=== PATIENT | male | born 1990 | race Hispanic/Latino ===

== ENCOUNTER 2024-03-09 20:02 | Emergency (ER) | payer SELFPAY ==
[2024-03-09] MEDS ORDERED: TETRACAINE HCL 0.5% 4ML OPTH ONE (21:42)
[2024-03-09] MEDS ORDERED: FLUORESCEIN SODIUM 1 MG/WRAP ONE (21:42)
--- NOTE | 2024-03-09 21:52 | EDPHYS ---
Physician Documentation [facility] Name: Jose Mello Age: 33 yrs Sex: Male : 1990 Arrival Date: 03/09/2024 Time: 20:02 Bed 9 Private MD: ED Physician Elmer Vargas HPI: 03/09 21:46 This 33 yrs old Male presents to ER via Ambulatory with complaints of Sore toya Throat. 21:46 The patient presents with sore throat. The patient describes throat pain as raw. Onset: toya The symptoms/episode began/occurred 2 day(s) ago. Severity of symptoms: At their worst the symptoms were moderate, in the emergency department the symptoms are unchanged. Modifying factors: The symptoms are alleviated by nothing, the symptoms are aggravated by swallowing. Associated signs and symptoms: The patient has no apparent associated signs or symptoms. The patient has experienced similar episodes in the past, a few times. Historical: - Allergies: 20:28 No Known Allergies; bm8 - Home Meds: 20:28 None [Active]; bm8 - PMHx: 20:28 None; bm8 - PSHx: 20:28 None; bm8 - Immunization history:: Adult Immunizations up to date. - Infectious Disease History:: Denies. - Social history:: Smoking status: Patient reports the use of cigarette tobacco products. ROS: 21:47 Constitutional: Negative for fever, chills, and weight loss, Neck: Negative for injury, toya pain, and swelling, Cardiovascular: Negative for chest pain, palpitations, and edema, Respiratory: Negative for shortness of breath, cough, wheezing, and pleuritic chest pain, Abdomen/GI: Negative for abdominal pain, nausea, vomiting, diarrhea, and constipation, Back: Negative for injury and pain, : Negative for injury, bleeding, discharge, and swelling, MS/Extremity: Negative for injury and deformity, Skin: Negative for injury, rash, and discoloration, Neuro: Negative for headache, weakness, numbness, tingling, and seizure, Psych: Negative for depression, anxiety, suicide ideation, homicidal ideation, and hallucinations, Allergy/Immunology: Negative for hives, rash, and allergies, Endocrine: Negative for neck swelling, polydipsia, polyuria, polyphagia, and marked weight changes, Hematologic/Lymphatic: Negative for swollen nodes, abnormal bleeding, and unusual bruising, 21:47 Eyes: Positive for pain, redness, of the iris of right eye, Exam: 21:47 Constitutional: This is a well developed, well nourished patient who is awake, alert, toya and in no acute distress. Head/Face: Normocephalic, atraumatic. Neck: Trachea midline, no thyromegaly or masses palpated, and no cervical lymphadenopathy. Supple, full range of motion without nuchal rigidity, or vertebral point tenderness. No Meningismus. Chest/axilla: Normal chest wall appearance and motion. Nontender with no deformity. No lesions are appreciated. Cardiovascular: Regular rate and rhythm with a normal S1 and S2. No gallops, murmurs, or rubs. Normal PMI, no JVD. No pulse deficits. Respiratory: Lungs have equal breath sounds bilaterally, clear to auscultation and percussion. No rales, rhonchi or wheezes noted. No increased work of breathing, no retractions or nasal flaring. Abdomen/GI: Soft, non-tender, with normal bowel sounds. No distension or tympany. No guarding or rebound. No evidence of tenderness throughout. Back: No spinal tenderness. No costovertebral tenderness. Full range of motion. Skin: Warm, dry with normal turgor. Normal color with no rashes, no lesions, and no evidence of cellulitis. MS/ Extremity: Pulses equal, no cyanosis. Neurovascular intact. Full, normal range of motion., bilateral aka Neuro: Awake and alert, GCS 15, oriented to person, place, time, and situation. Cranial nerves II-XII grossly intact. Motor strength 5/5 in all extremities. Sensory grossly intact. Cerebellar exam normal. Normal gait. Psych: Awake, alert, with orientation to person, place and time. Behavior, mood, and affect are within normal limits. 21:47 Eyes: Periorbital structures: no acute changes, Pupils: equal, round, and reactive to light and accomodation, Extraocular movements: intact throughout, Conjunctiva: injected, Corneas: abrasion, that is small, a fluorescein strip employed to appreciate the findings, RIGHT 9 'CLOCK ULCER, Vital Signs: 20:27 BP 146 / 95; Pulse 81; Resp 17; Temp 98.6; Pulse Ox 96% ; Weight 113.4 kg; Height 5 ft. bm8 6 in. ; Pain 3/10; 20:27 Body Mass Index 40.35 (113.40 kg, 167.64 cm) bm8 20:27 Pain Scale: Adult bm8 Procedures: 21:53 Performed STAINED RIGHT EYE, 9 AM ULCER NOTED , DW DR ZUNIGA , NO CULTURE , NO ABX , toya WILL SEE IN AM IN THE OFFICE. MDM: 20:27 Medical Screening Exam initiated [facility] 20:27 Medical Screening Exam initiated [facility] 21:49 Differential diagnosis: Corneal abrasion of Corneal ulcer of Ultraviolet keratitis in [facility] eddi-marshall virus, gingivostomatitis, group A strep tonsillitis, influenza, peritonsillar abscess chlamydia pharyngitis, neisseria gonorrheoeae pharangitis, Mycoplasma Pharyngitis upper respiratory infection, uvulitis, viral syndrome. Data reviewed: vital signs, nurses notes. Consideration of Admission/Observation Escalation of care including admission/observation considered. I considered the following discharge prescriptions or medication management in the emergency department Medications were administered in the Emergency Department. See MAR. Independent interpretation of the following test(s) in the Emergency Department EKG: See my EKG interpretation above. Test considered but Not performed: Labs: NO LABS , NO CULTURES PER DR ZUNIGA WILL SEE IN THE AM , OFFICE. 03/09 20:26 Order name: Strep 8 03/09 21:04 Order name: Throat Culture [facility] 03/09 21:43 Order name: Eye Tray; Complete Time: 21:57 [facility] Administered Medications: 21:57 Drug: Tetracaine Drops 0.5 % 1 drops Ophthalmic once {Note: administered by Dr. guanakito Vargas .} Route: Ophthalmic; Site: right eye; 22:12 Follow up: Response: No adverse reaction [facility] 21:57 Drug: Fluorescein Strip 1 strip Ophthalmic once {Note: administered by Dr. Vargas .} ha1 Route: Ophthalmic; Site: right eye; 22:12 Follow up: Response: No adverse reaction ha1 22:03 Drug: [place] PO 10 mg-325 mg 1 tabs PO once Route: PO; jb4 22:12 Follow up: Response: Medication administered at discharge. jb4 22:03 Drug: Amoxicillin-Clavulanate PO 875 mg PO once Route: PO; jb4 22:13 Follow up: Response: Medication administered at discharge. jb4 Disposition Summary: 03/09/24 21:52 Discharge Ordered Notes: Location: Home [facility] Problem: new toya Symptoms: have improved toya Condition: Stable toya Diagnosis - Unspecified corneal ulcer, right eye toya - Acute tonsillitis, unspecified toya Followup: toya - With: Private Physician - When: 2 - 3 days - Reason: Recheck today's complaints, Continuance of care, Re-evaluation by your physician Followup: toya - With: Anibal Zuniga MD - When: Tomorrow - Reason: Recheck today's complaints, Re-evaluation by your physician Discharge Instructions: - Discharge Summary Sheet toya - Corneal Ulcer toya - Pharyngitis toya - Tonsillitis toya - Tonsillitis, [place]-[facility]-[place] Forms: - Medication Reconciliation Form toya - Antibiotic Education toya - Prescription Opioid Use toya - Patient Portal Instructions [facility] - Leadership Thank You Letter [facility] Prescriptions: - Augmentin 500-125 mg Oral Tablet - take 1 tablet ORAL route every 8 hours for 10 days; 30 tablet; Refills: 0, toya Product Selection Permitted Signatures: Dispatcher [employer] Elmer Mooney MD MD cha Bryson, James, RN RN jb4 Nakia Ibarra RN RN ha1 Yefri Suarez, RN RN bm8
--- NOTE | 2024-03-09 21:52 | ER ---
Nurse's Notes [facility] Name: Jose Mello Age: 33 yrs Sex: Male : 1990 Arrival Date: 03/09/2024 Time: 20:02 Bed 9 Private MD: Diagnosis: Unspecified corneal ulcer, right eye;Acute tonsillitis, unspecified Presentation: 03/09 20:27 Chief complaint: Patient states: I have had sore throat for a week, and my right eye is bm8 bothering me for the same time. Coronavirus screen: Vaccine status: Patient reports receiving the 2nd dose of the covid vaccine. Ebola Screen: Patient negative for fever greater than or equal to 101.5 degrees Fahrenheit, and additional compatible Ebola Virus Disease symptoms Patient denies exposure to infectious person. Patient denies travel to an Ebola-affected area in the 21 days before illness onset. No symptoms or risks identified at this time. Initial Sepsis Screen: Does the patient meet any 2 criteria? No. Patient's initial sepsis screen is negative. Does the patient have a suspected source of infection? No. Patient's initial sepsis screen is negative. Risk Assessment: Do you want to hurt yourself or someone else? Patient reports no desire to harm self or others. Onset of symptoms was March 02, 2024 at 08:00. 20:27 Method Of Arrival: Ambulatory bm8 20:27 Acuity: SMITH 4 bm8 Triage Assessment: 20:28 General: Appears in no apparent distress. comfortable, Behavior is calm, cooperative, bm8 appropriate for age. Pain: Complains of pain in throat Pain currently is 3 out of 10 on a pain scale. Quality of pain is described as burning. EENT: Throat is reddened has patchy exudate has enlarged tonsils bilaterally with gag reflex present. Neuro: No deficits noted. Level of Consciousness is awake, alert, obeys commands, Oriented to person, place, time, situation. Cardiovascular: Denies chest pain. Respiratory: Airway is patent Trachea midline Respiratory effort is even, unlabored, Respiratory pattern is regular, symmetrical. GI: No signs and/or symptoms were reported involving the gastrointestinal system. : No signs and/or symptoms were reported regarding the genitourinary system. Derm: No signs and/or symptoms reported regarding the dermatologic system. Musculoskeletal: No signs and/or symptoms reported regarding the musculoskeletal system. Historical: - Allergies: 20:28 No Known Allergies; bm8 - Home Meds: 20:28 None [Active]; bm8 - PMHx: 20:28 None; bm8 - PSHx: 20:28 None; bm8 - Immunization history:: Adult Immunizations up to date. - Infectious Disease History:: Denies. - Social history:: Smoking status: Patient reports the use of cigarette tobacco products. Screenin:01 [facility] ED Fall Risk Assessment (Adult) History of falling in the last 3 months, jb4 including since admission No falls in past 3 months (0 pts) Confusion or Disorientation No (0 pts) Intoxicated or Sedated No (0 pts) Impaired Gait No (0 pts) Mobility Assist Device Used No (0 pt) Altered Elimination No (0 pt) Score/Fall Risk Level 0 - 2 = Low Risk Oriented to surroundings, Maintained a safe environment. Abuse screen: Denies threats or abuse. Nutritional screening: No deficits noted. Tuberculosis screening: No symptoms or risk factors identified. Assessment: 21:01 Reassessment: Patient appears in no apparent distress at this time. Patient and/or jb4 family updated on plan of care and expected duration. Pain level reassessed. Patient is alert, oriented x 3, equal unlabored respirations, skin warm/dry/pink. 22:11 Reassessment: Patient appears in no apparent distress at this time. Patient and/or jb4 family updated on plan of care and expected duration. Pain level reassessed. Patient is alert, oriented x 3, equal unlabored respirations, skin warm/dry/pink. Vital Signs: 20:27 BP 146 / 95; Pulse 81; Resp 17; Temp 98.6; Pulse Ox 96% ; Weight 113.4 kg; Height 5 ft. bm8 6 in. ; Pain 3/10; 20:27 Body Mass Index 40.35 (113.40 kg, 167.64 cm) bm8 20:27 Pain Scale: Adult bm8 ED Course: 20:19 Patient arrived in ED. jj6 20:27 Elmer Vargas MD is Attending Physician. toya 20:28 Triage completed. bm8 20:28 Arm band placed on right wrist. bm8 21:01 Patient has correct armband on for positive identification. Bed in low position. Call jb4 light in reach. Side rails up X 1. Provided Education on: plan of care. 21:51 Anibal Zuniga MD is Referral Physician. [facility] 22:11 No provider procedures requiring assistance completed. Patient did not have IV access jb4 during this emergency room visit. Administered Medications: 21:57 Drug: Tetracaine Drops 0.5 % 1 drops Ophthalmic once {Note: administered by Dr. guanakito Vargas .} Route: Ophthalmic; Site: right eye; 22:12 Follow up: Response: No adverse reaction ha1 21:57 Drug: Fluorescein Strip 1 strip Ophthalmic once {Note: administered by Dr. Vargas .} ha1 Route: Ophthalmic; Site: right eye; 22:12 Follow up: Response: No adverse reaction ha1 22:03 Drug: [place] PO 10 mg-325 mg 1 tabs PO once Route: PO; jb4 22:12 Follow up: Response: Medication administered at discharge. jb4 22:03 Drug: Amoxicillin-Clavulanate PO 875 mg PO once Route: PO; jb4 22:13 Follow up: Response: Medication administered at discharge. jb4 Medication: 21:01 VIS not applicable for this client. jb4 Outcome: 21:52 Discharge ordered by MD. [facility] 22:11 Discharged to home ambulatory, jb4 22:11 Condition: stable 22:11 Discharge instructions given to patient, Instructed on discharge instructions, follow up and referral plans. medication usage, Demonstrated understanding of instructions, follow-up care, medications, Prescriptions given X 1, 22:12 Patient left the ED. jb4 Signatures: Elmer Vargas MD MD cha Bryson, James, RN RN jb4 Velma Hillman jj6 Nakia Ibarra RN RN Yefri Matthews, RN RN bm8 Corrections: (The following items were deleted from the chart) 22:13 22:11 Discharge instructions given to patient, Instructed on discharge instructions, jb4 follow up and referral plans. Demonstrated understanding of instructions, follow-up care, jb4
[2024-03-09] MEDS ORDERED: HYDROCODONE/APAP 10/325 TAB ONE (21:59)
[2024-03-09] MEDS ORDERED: AMOX/K CLAV 875 MG TAB ONE (21:59)
[2024-03-10 07:49] VITALS: BP 146/95; TEMP 98.6; O2SAT 96
== END 2024-03-09 22:12 | disposition home or self-care (01) ==
LOC: ER 20:02
DX: J03.90 Acute tonsillitis, unspecified (principal); H16.001 Unspecified corneal ulcer, right eye
CPT/HCPCS: 87070; 87081